=== PATIENT | male | born 1965 | race Caucasian/White ===

== ENCOUNTER 2017-01-18 20:27 | Emergency (ER) | payer OTHER ==
--- NOTE | ~2017-01-18 | CR169 ---
[facility] A Service of [facility] RADIOLOGY TEXT RESULTS PATIENT: DERRICK STEVE LOCATION: SED : 67 UNIT #: [id number] AGE: [address]: David Leon SEX: M ORDER DR: [id number] [place] [id number] E MR#: [id number] Acc #: [id number] NAME: DERRICK STEVE : 1965 SEX: M STUDY DATE/TIME: 01/18/2017 21:16 UNIT: SED ROOM: STUDY DESCRIPTION: CR Knee 2 Views Lt Attending Physician: David Leon P.A.-C. Ordering Physician: Kristina Rose A.P.R.N. Primary Care Physician: Primary Care Physician No MEDICAL IMAGING REPORT This report is preliminary unless electronic signature is present. EXAM Knee left 2 views, 01/18/2017 HISTORY Patient has left knee pain after falling of a ladder 3 days ago. COMMENT 2 views of the left knee reviewed. No comparison. There is a sclerotic lesion seen in the distal left femur measuring about 2.7 cm x 1.5 cm x 1.8 cm in dimension. It appears fairly solid and I do not see any cortical disruption. It is nonspecific and in the patient's age group I would recommend correlation with a whole body bone scan. It could simply be a bone island but a sclerotic osseous metastasis could have the same appearance. The patient's age group is not suggestive of a nonossifying fibroma. There is some arthritis at the left knee with some narrowing of the tibiofemoral compartments and mild osteophyte formation. There is a small to moderate suprapatellar joint effusion but there is no acute fracture appreciated. IMPRESSION 1. Degenerative changes left knee with a small to moderate suprapatellar joint effusion but no acute fracture appreciated. No dislocation. 2. Sclerotic lesion distal left femur measuring up to 2.7 cm in dimension. It is nonspecific with benign entities as well as metastatic disease in the differential. I recommend further evaluation with a whole-body bone scan. Please correlate further clinically. Dictated by... [facility] A Service of [facility] RADIOLOGY TEXT RESULTS PATIENT: DERRICK STEVE LOCATION: SED : 67 UNIT #: [id number] AGE: [address]: David Leon PAC SEX: M ORDER DR: Megan Wu M.D. THIS IS AN ELECTRONICALLY VERIFIED REPORT Megan Wu M.D. at 01/19/2017 10:24 AM Gato TD: 01/19/2017 03:16 JOB #: [id number] MEDICAL IMAGING REPORT Page 1 of 1
--- NOTE | ~2017-01-18 | CR58 ---
[facility] A Service of [facility] RADIOLOGY TEXT RESULTS PATIENT: DERRICK STEVE LOCATION: SED : 67 UNIT #: [id number] AGE: [address]: David Leon SEX: M ORDER DR: [id number] [place] [id number] E MR#: [id number] Acc #: [id number] NAME: DERRICK STEVE : 1965 SEX: M STUDY DATE/TIME: 01/18/2017 21:16 UNIT: SED ROOM: STUDY DESCRIPTION: CR Cervical Spine 2 or 3 Views Attending Physician: David Leon P.A.-C. Ordering Physician: Kristina Rose A.P.R.N. Primary Care Physician: Primary Care Physician No MEDICAL IMAGING REPORT This report is preliminary unless electronic signature is present. EXAM Cervical spine series, 01/18/2017 HISTORY The patient has fall after fall 3 days ago. Radiculopathy. Posterior neck pain since. COMMENT AP, lateral, odontoid and limited swimmer's type submitted for review. Films submitted for review. Films obtained in a cervical spine collar. Cervical vertebral bodies are seen from C1 to C7. Cervicothoracic junction is not seen including evaluation of the additional view. Repeat swimmer's view recommended. Normal alignment maintained visualized levels with minimal anterior endplate spondylosis. Precervical soft tissues normal. No acute fracture. IMPRESSION Recommend a repeat swimmer's view. Cervicothoracic junction is not seen, even on the additional coned down view at C7-T1. At this time no acute fracture or malalignment is suspected but without visualization of C7-T1, a trauma series for cervical spine evaluation is incomplete. Dictated by... Megan Wu M.D. THIS IS AN ELECTRONICALLY VERIFIED REPORT Megan Wu M.D. at 01/19/2017 10:25 AM DIRK/mini TD: 01/19/2017 03:39 [facility] A Service of [facility] RADIOLOGY TEXT RESULTS PATIENT: DERRICK STEVE LOCATION: SED : 67 UNIT #: [id number] AGE: [address]: David Leon PAC SEX: M ORDER DR: HI #: [id number] MEDICAL IMAGING REPORT Page 1 of 1
--- NOTE | ~2017-01-18 | CR181 ---
[facility] A Service of [facility] RADIOLOGY TEXT RESULTS PATIENT: DERRICK STEVE LOCATION: SED : 67 UNIT #: [id number] AGE: [address]: David Leon SEX: M ORDER DR: [id number] [place] [address] [id number] E MR#: [id number] Acc #: [id number] NAME: DERRICK STEVE : 1965 SEX: M STUDY DATE/TIME: 01/18/2017 21:16 UNIT: SED ROOM: STUDY DESCRIPTION: CR Lumbar Spine 2 or 3 Views Attending Physician: David Leon P.A.-C. Ordering Physician: Kristina Rose A.P.R.N. Primary Care Physician: Primary Care Physician No MEDICAL IMAGING REPORT This report is preliminary unless electronic signature is present. EXAM Lumbar spine, 01/18/2017 HISTORY Pain in low back since falling off a ladder 3 days ago. COMMENT AP, lateral and lumbosacral views lumbar spine reviewed. No prior. There is mild levoconvex scoliosis which might be positional. There is mild end-plate spondylosis anteriorly, most apparent at 4-5 and 3-4 levels. Some subtle loss of intervertebral disc height also most apparent at the 3-4 level and mild lower lumbar facet degenerative change likely. No acute fracture or traumatic malalignment is suspected. IMPRESSION Mild lumbar degenerative changes but no acute fracture or traumatic malalignment is suspected. Dictated by... Megan Wu M.D. THIS IS AN ELECTRONICALLY VERIFIED REPORT Megan Wu M.D. at 01/19/2017 10:25 AM DIRK/mini TD: 01/19/2017 03:23 JOB #: [id number] MEDICAL IMAGING REPORT [facility] A Service of [facility] RADIOLOGY TEXT RESULTS PATIENT: DERRICK STEVE LOCATION: SED : 67 UNIT #: [id number] AGE: [address]: David Leon SEX: M ORDER DR: Page 1 of 1
--- NOTE | ~2017-01-18 | CR150 ---
[facility] A Service of [facility] RADIOLOGY TEXT RESULTS PATIENT: DERRICK STEVE LOCATION: SED : 67 UNIT #: [id number] AGE: [address]: David Leon SEX: M ORDER DR: [id number] [place] [address] [id number] E MR#: [id number] Acc #: [id number] NAME: DERRICK STEVE : 1965 SEX: M STUDY DATE/TIME: 01/18/2017 21:16 UNIT: SED ROOM: STUDY DESCRIPTION: CR Hip Min 2 Views Lt Attending Physician: David Leon P.A.-C. Ordering Physician: Kristina Rose A.P.R.N. Primary Care Physician: Primary Care Physician No MEDICAL IMAGING REPORT This report is preliminary unless electronic signature is present. EXAM Left hip, 01/18/2017 HISTORY Pain after falling off of a ladder 3 days ago. COMMENT Frontal view of the pelvis and a frog-leg view of the left hip are reviewed. There is no acute fracture, dislocation or radiopaque foreign body. There is arthritis at both hips. IMPRESSION Arthritis bilateral hips but no acute fracture or dislocation. Dictated by... Megan Wu M.D. THIS IS AN ELECTRONICALLY VERIFIED REPORT Megan Wu M.D. at 01/19/2017 10:24 AM DIRK/mini TD: 01/19/2017 03:11 JOB #: [id number] MEDICAL IMAGING REPORT Page 1 of 1
--- NOTE | ~2017-01-18 | CT52 ---
[facility] A Service [facility] RADIOLOGY TEXT RESULTS PATIENT: DERRICK STEVE LOCATION: SED : 67 UNIT #: [id number] AGE: [address]: David Leon PAC SEX: M ORDER DR: [id number] [place] [address] [id number] E MR#: [id number] Acc #: [id number] NAME: DERRICK STEVE : 1965 SEX: M STUDY DATE/TIME: 01/18/2017 22:52 UNIT: SED ROOM: STUDY DESCRIPTION: CT Cervical Spine Wo Cont Attending Physician: David Leon P.A.-C. Ordering Physician: David Leon P.A.-C. Primary Care Physician: Primary Care Physician No MEDICAL IMAGING REPORT This report is preliminary unless electronic signature is present. EXAM CT cervical spine without contrast INDICATIONS Posterior neck pain for the past [address] cervical spine COMPARISON None FINDINGS Cervical bodies have normal height. Craniocervical junction prevertebral soft tissues and the dens are intact. No aggressive appearing bone lesion. No acute fracture. There is [id number] multilevel degenerative disc disease with varying degrees of central canal narrowing. No critical central canal narrowing. IMPRESSION 1. No acute findings. 2. [id number] degenerative change. Dictated by... Ted Armendariz M.D. THIS IS AN ELECTRONICALLY VERIFIED REPORT Ted Armendariz M.D. at 01/19/2017 9:56 PM COURTNEY/karel TD: 01/19/2017 07:00 JOB #: [id number] [facility] A Service [facility] RADIOLOGY TEXT RESULTS PATIENT: DERRICK STEVE LOCATION: SED : 67 UNIT #: [id number] AGE: [address]: David Leon PAC SEX: M ORDER DR: MEDICAL IMAGING REPORT Page 1 of 1
[~2017-01-18 20:27] MED LIST: ANEXSIA 5/325 M1 TA1 PO; FLOMAX0.4 M1 DOB; NO MEDICATIONS
== END 2017-01-19 03:24 | disposition home or self-care (01) ==
LOC: SED 20:27
DX: S13.4XXA Sprain of ligaments of cervical spine, initial encounter (principal); S80.02XA Contusion of left knee, initial encounter; W11.XXXA Fall on and from ladder, initial encounter; Y92.009 Unspecified place in unspecified non-institutional (private) residence as the place of occurrence of the external cause
CPT/HCPCS: 72040; 72100; 72125; 73502; 73560; 99284